=== PATIENT | female | born 1995 | race Caucasian/White ===

== ENCOUNTER 2018-05-02 20:01 | Emergency (ER) | payer BC ==
[~2018-05-02] VITALS: Ht 160 cm; Wt 58.5 kg
[2018-05-02 20:04] VITALS: Ht 160 cm; Wt 58.5 kg
[2018-05-02 21:37] VITALS: BP 92/57
== END 2018-05-02 21:37 | disposition home or self-care (01) ==
LOC: ED 20:01
DX: R50.9 Fever, unspecified (principal); J45.909 Unspecified asthma, uncomplicated; M79.1 Myalgia; J02.9 Acute pharyngitis, unspecified; Z88.1 Allergy status to other antibiotic agents
CPT/HCPCS: J1100